=== PATIENT | male | born 1950 | race American Indian/Alaskan Native ===

== ENCOUNTER 2021-06-26 09:16 | Inpatient (IN) | payer SELFPAY ==
[2021-06-26] MEDS ORDERED: LACTATED RINGERS 1,000 ML IV ONE ×2 (10:07→11:08)
--- NOTE | 2021-06-26 10:09 | Emergency Department Report ---
ED General Adult HPI - General Chief complaint: Weakness Stated complaint: I feel shaky and weak PUI?: No Time Seen by Provider: 06/26/21 09:57 Source: patient, RN notes reviewed Mode of arrival: Ambulatory Limitations: Physical Limitation - History of Present Illness Initial comments: The patient was evaluated in the emergency department for symptoms described in the history of present illness. He/she was evaluated in the context of the global COVID-19 pandemic, which necessitated consideration that the patient might be at risk for infection with the virus that causes COVID-19. Institutional protocols and algorithms that pertain to the evaluation of patients at risk for COVID-19 are in a state of rapid change based on information released by regulatory bodies including the CDC and federal and state organizations. These policies and algorithms were followed during the patient's care in the emergency department. Please note that these policies, procedures and recommendations changed on a rapid basis. Limitation: The patient is a poor historian. The patient is a 71-year-old gentleman. He is not known to myself previously. He tells me he was admitted to [facility] last month for about 10 days secondary to COVID-19. He presents to the ER today with a complaint of 5 to 6 days feeling shaky, weak, having an unsteady gait, change in speech, and chills. He denies physical pain. He denies loss of taste and smell. He states he was given a few prescriptions, and believes that he got the prescriptions at [facility]. However, he does not know what prescriptions he takes. He denies dysuria. He has loss of taste and smell which is subacute and present for over a month. He denies bright red blood per rectum and hematemesis. -: days(s) Consistency: constant Improves with: rest Worsens with: movement - Related Data Allergies Allergy/AdvReac Type Severity Reaction Status Date / Time No Known Allergies Allergy Unverified 06/26/21 09:26 ED Review of Systems ROS: Stated complaint: FOOT Other details as noted in HPI Constitutional: chills, malaise, weakness. denies: fever Eyes: denies: eye discharge ENT: denies: epistaxis Respiratory: denies: cough Cardiovascular: denies: chest pain Genitourinary: denies: hematuria, discharge, testicular pain Neurological: weakness, abnormal gait Hematological/Lymphatic: denies: easy bleeding ED Past Medical Hx - Past Medical History Previous Medical History?: No - Surgical History Past Surgical History?: No - Social History Smoking Status: Never Smoker Substance Use Type: None ED Physical Exam - General Limitations: Physical Limitation General appearance: alert, in no apparent distress - Head Head exam: Present: atraumatic, normocephalic - Eye Eye exam: Present: normal appearance, PERRL, EOMI, other (Visual acuity intact t o finger counting, color perception, reading at a close distance). Absent: nystagmus - ENT ENT exam: Present: normal exam, normal orophraynx, mucous membranes moist, normal external ear exam - Neck Neck exam: Present: normal inspection, full ROM. Absent: tenderness, meningismus - Respiratory Respiratory exam: Present: normal lung sounds bilaterally. Absent: respiratory distress, wheezes, rales, rhonchi, stridor, decreased breath sounds - Cardiovascular Cardiovascular Exam: Present: regular rate, normal rhythm, normal heart sounds. Absent: bradycardia, tachycardia, irregular rhythm, systolic murmur, diastolic murmur, rubs, gallop - GI/Abdominal GI/Abdominal exam: Present: soft. Absent: distended, tenderness, guarding, rebound, rigid, pulsatile mass - Rectal Rectal exam: Present: deferred - Extremities Exam Extremities exam: Present: normal inspection, full ROM, other (2+ pulses noted in the bilateral upper and lower extremities. There is no palpable cord. negative Homans sign. Muscular compartments are soft. The pelvis is stable.). Absent: pedal edema, calf tenderness - Back Exam Back exam: Present: normal inspection, full ROM. Absent: tenderness, CVA tenderness (R), CVA tenderness (L), paraspinal tenderness, vertebral tenderness - Neurological Exam Neurological exam: Present: alert, oriented X3, abnormal gait (The patient has a broad-based gait. He has a positive Romberg examination. He cannot walk tandem gait), other (There is no facial droop. Tongue midline. EOMI. 5 out of 5 strength in 4 extremities. Sensation is intact to light touch in 4 extremities) - Psychiatric Psychiatric exam: Present: normal affect, normal mood - Skin Skin exam: Present: warm, dry, intact, normal color. Absent: rash ED Course Vital Signs 06/26/21 06/26/21 06/26/21 09:29 09:53 10:47 Temperature 97.7 F Pulse Rate 98 H 82 Respiratory 18 16 Rate Blood Pressure 114/72 Blood Pressure 116/73 [Left] O2 Sat by Pulse 93 95 94 Oximetry - Reevaluation(s) Reevaluation #1: 06/26/21 10:25 Differential diagnosis, including but not limited to: Pneumonia, hyperglycemia, diabetic ketoacidosis, hyperosmolar state, subacute stroke, pulmonary embolism, Covid long-haul Assessment and plan: 71-year-old gentleman, who is afebrile with reassuring vital signs, with the exception of hypoxia, saturating 89 to 94% on room air, clinically sober with a GCS of 15, with 5 to 6 days of weakness, unsteady gait, change in speech pattern. The patient is not a TPA candidate and does not require emergent CT angiogram head and neck given duration of symptoms. His symptoms are present for greater than 24 hours. Given recent admission of Covid, hospitalization, hypoxia, we will obtain CT scan of the chest, and CT scan of the brain. We will obtain appropriate laboratory studies, urinalysis, EKG. Have requested medical records from [facility]. The patient states he does not have chronic medical issues, but I suspect that he is a poorly and chronically manages diabetic. He will likely require admission once initial diagnostics have resulted. I have discussed this plan of care with the patient. He is agreeable to the plan of care. 06/26/21 11:09 Laboratory studies demonstrate hyperglycemia, venous pH of 7.2, hyperkalemia, with potassium greater than 6 that is not hemolyzed (likely secondary to dehydration and transcellular shift, suspect that total body potassium still depleted), and renal insufficiency. IV fluids ordered, insulin push, insulin drip ordered. CT scan of the chest will be canceled as patient has renal insufficiency, nuclear medicine study will be obtained. CT scan of the brain is pending. This patient meets criteria for admission and hospitalization secondary to renal insufficiency, dehydration, hyperglycemia, diabetic ketoacidosis. Defer to inpatient team to follow-up on nuclear medicine study. Page has been placed to critical care physician on-call to coordinate placement into the intensive care unit. We are still awaiting medical records from [place]. 06/26/21 11:40 Dr. Moore to admit patient to the medical service. Dr. Cowart of critical care will follow in consultation. Laboratory studies reviewed and appreciated. Nuclear medicine study is pending. Patient remains awake, alert, oriented and in no significant distress at this time. 06/26/21 15:01 Nuclear medicine study is low probability for pulmonary embolism. - Consultations Consultation #1: 06/26/21 11:12 Discussed history, physical, laboratory studies, pending imaging studies and overall plan of care with critical care physician, Dr. Cowart, who is agreeable to placing this patient into the intensive care unit. ED Medical Decision Making - Lab Data Result diagrams: 06/26/21 10:14 06/26/21 13:22 Vital Signs 06/26/21 06/26/21 09:29 09:53 Temperature 97.7 F Pulse Rate 98 H Respiratory 18 Rate Blood Pressure 114/72 O2 Sat by Pulse 93 95 Oximetry Lab Results 06/26/21 Range/Units 09:31 POC Glucose 531 H (70-105) mg/dL Lab Results 06/26/21 06/26/21 06/26/21 Range/Units 09:31 10:14 10:14 WBC 5.6 (4.5-11.0) K/mm3 RBC 5.27 H (3.65-5.03) M/mm3 Hgb 15.5 H (11.8-15.2) gm/dl Hct 49.1 H (35.5-45.6) % MCV 93 (84-94) fl MCH 29 (28-32) pg MCHC 32 (32-34) % RDW 14.7 (13.2-15.2) % Plt Count 195 (140-440) K/mm3 Lymph % (Auto) 20.4 (13.4-35.0) % [place] % (Auto) 8.4 H (0.0-7.3) % Eos % (Auto) 0.2 (0.0-4.3) % Baso % (Auto) 0.6 (0.0-1.8) % Lymph # (Auto) 1.1 L (1.2-5.4) K/mm3 [place] # (Auto) 0.5 (0.0-0.8) K/mm3 Eos # (Auto) 0.0 (0.0-0.4) K/mm3 Baso # (Auto) 0.0 (0.0-0.1) K/mm3 Seg Neutrophils % 70.4 H (40.0-70.0) % Seg Neutrophils # 3.9 (1.8-7.7) K/mm3 PT 13.8 (12.2-14.9) Sec. INR 1.01 (0.87-1.13) APTT 25.3 (24.2-36.6) Sec. Thrombin Time 18.6 (15.1-19.6) Sec. D-Dimer 353.02 H (0-234) ng/mlDDU VBG pH (7.320-7.420) Sodium (137-145) mmol/L Chloride (98-107) mmol/L Carbon Dioxide (22-30) mmol/L Anion Gap mmol/L BUN (9-20) mg/dL Creatinine (0.8-1.3) mg/dL Estimated GFR ml/min BUN/Creatinine Ratio % POC Glucose 531 H (70-105) mg/dL Calcium (8.4-10.2) mg/dL Magnesium (1.7-2.3) mg/dL Total Bilirubin (0.1-1.2) mg/dL AST (5-40) units/L ALT (7-56) units/L Alkaline Phosphatase (35-129) units/L Total Creatine Kinase (55-170) units/L CK-MB (CK-2) (0.0-4.0) ng/mL CK-MB (CK-2) Rel Index (0-4) Troponin T (0.00-0.029) ng/mL Total Protein (6.3-8.2) g/dL Albumin (3.9-5) g/dL Albumin/Globulin Ratio % 06/26/21 06/26/21 06/26/21 Range/Units 10:14 10:14 10:14 WBC (4.5-11.0) K/mm3 RBC (3.65-5.03) M/mm3 Hgb (11.8-15.2) gm/dl Hct (35.5-45.6) % MCV (84-94) fl MCH (28-32) pg MCHC (32-34) % RDW (13.2-15.2) % Plt Count (140-440) K/mm3 Lymph % (Auto) (13.4-35.0) % [place] % (Auto) (0.0-7.3) % Eos % (Auto) (0.0-4.3) % Baso % (Auto) (0.0-1.8) % Lymph # (Auto) (1.2-5.4) K/mm3 Cabell # (Auto) (0.0-0.8) K/mm3 Eos # (Auto) (0.0-0.4) K/mm3 Baso # (Auto) (0.0-0.1) K/mm3 Seg Neutrophils % (40.0-70.0) % Seg Neutrophils # (1.8-7.7) K/mm3 PT (12.2-14.9) Sec. INR (0.87-1.13) APTT (24.2-36.6) Sec. Thrombin Time (15.1-19.6) Sec. D-Dimer (0-234) ng/mlDDU VBG pH 7.211 L (7.320-7.420) Sodium 139 (137-145) mmol/L Chloride 97.1 L (98-107) mmol/L Carbon Dioxide 20 L (22-30) mmol/L Anion Gap 28 mmol/L BUN 38 H (9-20) mg/dL Creatinine 2.0 H (0.8-1.3) mg/dL Estimated GFR 33 ml/min BUN/Creatinine Ratio 19 % POC Glucose (70-105) mg/dL Calcium 10.2 (8.4-10.2) mg/dL Magnesium 2.80 H (1.7-2.3) mg/dL Total Bilirubin 0.30 (0.1-1.2) mg/dL AST 12 (5-40) units/L ALT 23 (7-56) units/L Alkaline Phosphatase 65 (35-129) units/L Total Creatine Kinase 41 L 41 L (55-170) units/L CK-MB (CK-2) 1.7 (0.0-4.0) ng/mL CK-MB (CK-2) Rel Index 4.1 H (0-4) Troponin T < 0.010 (0.00-0.029) ng/mL Total Protein 6.9 (6.3-8.2) g/dL Albumin 3.6 L (3.9-5) g/dL Albumin/Globulin Ratio 1.1 % Lab Results 06/26/21 06/26/21 06/26/21 Range/Units 09:31 10:14 10:14 WBC 5.6 (4.5-11.0) K/mm3 RBC 5.27 H (3.65-5.03) M/mm3 Hgb 15.5 H (11.8-15.2) gm/dl Hct 49.1 H (35.5-45.6) % MCV 93 (84-94) fl MCH 29 (28-32) pg MCHC 32 (32-34) % RDW 14.7 (13.2-15.2) % Plt Count 195 (140-440) K/mm3 Lymph % (Auto) 20.4 (13.4-35.0) % [place]ell % (Auto) 8.4 H (0.0-7.3) % Eos % (Auto) 0.2 (0.0-4.3) % Baso % (Auto) 0.6 (0.0-1.8) % Lymph # (Auto) 1.1 L (1.2-5.4) K/mm3 Cabell # (Auto) 0.5 (0.0-0.8) K/mm3 Eos # (Auto) 0.0 (0.0-0.4) K/mm3 Baso # (Auto) 0.0 (0.0-0.1) K/mm3 Seg Neutrophils % 70.4 H (40.0-70.0) % Seg Neutrophils # 3.9 (1.8-7.7) K/mm3 PT 13.8 (12.2-14.9) Sec. INR 1.01 (0.87-1.13) APTT 25.3 (24.2-36.6) Sec. Thrombin Time 18.6 (15.1-19.6) Sec. D-Dimer 353.02 H (0-234) ng/mlDDU VBG pH (7.320-7.420) Sodium (137-145) mmol/L Chloride (98-107) mmol/L Carbon Dioxide (22-30) mmol/L Anion Gap mmol/L BUN (9-20) mg/dL Creatinine (0.8-1.3) mg/dL Estimated GFR ml/min BUN/Creatinine Ratio % POC Glucose 531 H (70-105) mg/dL Calcium (8.4-10.2) mg/dL Magnesium (1.7-2.3) mg/dL Total Bilirubin (0.1-1.2) mg/dL AST (5-40) units/L ALT (7-56) units/L Alkaline Phosphatase (35-129) units/L Total Creatine Kinase (55-170) units/L CK-MB (CK-2) (0.0-4.0) ng/mL CK-MB (CK-2) Rel Index (0-4) Troponin T (0.00-0.029) ng/mL Total Protein (6.3-8.2) g/dL Albumin (3.9-5) g/dL Albumin/Globulin Ratio % 06/26/21 06/26/21 06/26/21 Range/Units 10:14 10:14 10:14 WBC (4.5-11.0) K/mm3 RBC (3.65-5.03) M/mm3 Hgb (11.8-15.2) gm/dl Hct (35.5-45.6) % MCV (84-94) fl MCH (28-32) pg MCHC (32-34) % RDW (13.2-15.2) % Plt Count (140-440) K/mm3 Lymph % (Auto) (13.4-35.0) % Cabell % (Auto) (0.0-7.3) % Eos % (Auto) (0.0-4.3) % Baso % (Auto) (0.0-1.8) % Lymph # (Auto) (1.2-5.4) K/mm3 [place]ell # (Auto) (0.0-0.8) K/mm3 Eos # (Auto) (0.0-0.4) K/mm3 Baso # (Auto) (0.0-0.1) K/mm3 Seg Neutrophils % (40.0-70.0) % Seg Neutrophils # (1.8-7.7) K/mm3 PT (12.2-14.9) Sec. INR (0.87-1.13) APTT (24.2-36.6) Sec. Thrombin Time (15.1-19.6) Sec. D-Dimer (0-234) ng/mlDDU VBG pH 7.211 L (7.320-7.420) Sodium 139 (137-145) mmol/L Chloride 97.1 L (98-107) mmol/L Carbon Dioxide 20 L (22-30) mmol/L Anion Gap 28 mmol/L BUN 38 H (9-20) mg/dL Creatinine 2.0 H (0.8-1.3) mg/dL Estimated GFR 33 ml/min BUN/Creatinine Ratio 19 % POC Glucose (70-105) mg/dL Calcium 10.2 (8.4-10.2) mg/dL Magnesium 2.80 H (1.7-2.3) mg/dL Total Bilirubin 0.30 (0.1-1.2) mg/dL AST 12 (5-40) units/L ALT 23 (7-56) units/L Alkaline Phosphatase 65 (35-129) units/L Total Creatine Kinase 41 L 41 L (55-170) units/L CK-MB (CK-2) 1.7 (0.0-4.0) ng/mL CK-MB (CK-2) Rel Index 4.1 H (0-4) Troponin T < 0.010 (0.00-0.029) ng/mL Total Protein 6.9 (6.3-8.2) g/dL Albumin 3.6 L (3.9-5) g/dL Albumin/Globulin Ratio 1.1 % - EKG Data -: EKG Interpreted by La EKG shows normal: sinus rhythm - EKG Data When compared to previous EKG there are: previous EKG unavailable 06/26/21 10:24 EKG is interpreted at 10: 16 Sinus rhythm, 86 bpm, left axis deviation, left anterior fascicular block, QTC 469 ms, borderline left ventricular hypertrophy, and motion artifact. This is an abnormal EKG. This EKG is not a STEMI. - Radiology Data Radiology results: pending, report reviewed, image reviewed [facility] [address] [place] [address] Cat Scan Report Signed Patient: CLIFF CRANE MR#: [id number] 1 : 1950 Acct:[id number] Age/Sex: 71 / M ADM Date: 06/26/21 Loc: ED Attending Dr: Ordering Physician: LLUVIA PARTIDA MD Date of Service: 06/26/21 Procedure(s): CT head/brain wo con Accession Number(s): [id number] cc: LLUVIA PARTIDA MD CT HEAD WITHOUT CONTRAST INDICATION : Dizziness, unsteady gait, hyperglycemia. TECHNIQUE: Axial, coronal and sagittal CT imaging was performed from the skull apex through the skull base without contrast. All CT scans at this location are performed using CT dose reduction fo r ALARA by means of automated exposure control. COMPARISON: None available. FINDINGS: PARENCHYMA: No mass, midline shift, hemorrhage, extraaxial collection or acute territorial infarction. Probable chronic microvascular ischemic changes are seen along the periventr icular white matter. There is mild generalized atrophy. VENTRICLES: Symmetric and normal in size. SOFT TISSUES: No significant abnormality of the included soft tissues/orbits. BONES: No acute osseous abnormality. SINUSES: No significant abnormality. ADDITIONAL FINDINGS: None. IMPRESSION: 1. No acute intracranial abnormality. 2. Additional findings as above. Signer Name: Mati Angeles MD Signed: 06/26/2021 11:49 AM Workstation Name: [id number] Transcribed By: MN Dictated By: Mati Angeles MD Electronically Authenticated By: aMti Angeles MD Signed Date/Time: 06/26/21 1149 DD/ 1148 [facility] [address] [place] [address] XRay Report Signed Patient: CLIFF CRANE MR#: [id number] 1 : 1950 Acct :[id number] Age/Sex: 71 / M ADM Date: 06/26/21 Loc: ED Attending Dr: Ordering Physician: LLUVIA PARTIDA MD Date of Service: 06/26/21 Procedure(s): XR chest 1V ap Accession Number(s): [id number] cc: LLUVIA PARTIDA MD Fluoro Time In Minutes: CHEST 1 VIEW 06/26/2021 9:32 AM INDICATION / CLINICAL INFORMATION: hypoxia and dizzy. COMPARISON: None available. FINDINGS: SUPPORT DEVICES: None. HEART / MEDIASTINUM: No significant abnormality. LUNGS / PLEURA: No significant pulmonary or pleural abnormality. No pneumothorax. ADDITIONAL FINDINGS: No significant additional findings. IMPRESSION: 1. No acute findings. Signer Name: Jagjit Cruz MD Signed: 06/26/2021 10:34 AM Workstation Name: [id number] Transcribed By: DB Dictated By: JAGJIT CRUZ MD Electronically Authenticated By: JAGJIT CRUZ MD Signed Date/Time: 06/26/21 1034 DD/ 1033 Critical Care Time: Yes Critical care time in (mins) excluding proc time.: 35 Critical care attestation.: If time is entered above; I have spent that time in minutes in the direct care of this critically ill patient, excluding procedure time. ED Disposition Clinical Impression: Hypoxia, Unsteady gait, Hyperglycemia, DKA (diabetic ketoacidosis), Renal insufficiency, Dehydration Disposition: ADMITTED INPATIENT Is pt being admited?: Yes Condition: Serious
[2021-06-26 10:38] LABS: Basophils % (Auto) 0.6 % (0.0-1.8); Eosinophils % (Auto) 0.2 % (0.0-4.3); Hematocrit 49.1 % (35.5-45.6); Hemoglobin 15.5 gm/dl (11.8-15.2); Lymphocytes # (Auto) 1.1 K/mm3 (1.2-5.4); Lymphocytes % (Auto) 20.4 % (13.4-35.0); Mean Corpuscular HGB Conc 32 % (32-34); Mean Corpuscular Volume 93 fl (84-94); Monocytes # (Auto) 0.5 K/mm3 (0.0-0.8); Monocytes % (Auto) 8.4 % (0.0-7.3); Platelet Count 195 K/mm3 (140-440); Red Blood Count 5.27 M/mm3 (3.65-5.03); Red Cell Distribution Width 14.7 % (13.2-15.2)
--- NOTE | 2021-06-26 10:38 | XRay Report ---
CHEST 1 VIEW 06/26/2021 9:32 AM INDICATION / CLINICAL INFORMATION: hypoxia and dizzy. COMPARISON: None available. FINDINGS: SUPPORT DEVICES: None. HEART / MEDIASTINUM: No significant abnormality. LUNGS / PLEURA: No significant pulmonary or pleural abnormality. No pneumothorax. ADDITIONAL FINDINGS: No significant additional findings. IMPRESSION: 1. No acute findings. Signer Name: Jagjit Cruz MD Signed: 06/26/2021 10:34 AM Workstation Name: [id number]
[2021-06-26 10:58] LABS: INR 1.01 (0.87-1.13); Partial Thromboplastin Time 25.3 Sec. (24.2-36.6)
[2021-06-26 10:59] LABS: Thrombin Time 18.6 Sec. (15.1-19.6)
[2021-06-26 11:00] LABS: Creatine Kinase MB 1.7 ng/mL (0.0-4.0)
[2021-06-26 11:01] LABS: Albumin 3.6 g/dL (3.9-5); Calcium 10.2 mg/dL (8.4-10.2)
[2021-06-26] MEDS ORDERED: DEXTROSE 50% IN WATER (25GM) 50 ML SYRINGE IV PRN ×2 (11:08→22:13)
[2021-06-26] MEDS ORDERED: INSULIN REGULAR, HUMAN 100 UNITS/1 ML IV ONE (11:08)
--- NOTE | 2021-06-26 11:40 | History and Physical Report ---
History of Present Illness Chief complaint: I feel weak and tired History of present illness: 71 YO Female with DM, Medication Noncompliance presents to ED for evaluation. Patient reports "I feel weak and tired". Patient states that he has experienced generalized weakness, frequent urination, polydipsia. EMS was notified and upon arrival the patient was found to be in distress and subsequently transported to [facility] for further care and evaluation of the aforementioned symptoms. The patient was seen and evaluated in the emergency department. All lab and imaging studies reviewed. The patient was found to have diabetic ketoacidosis with concomitant volume depletion complicated by KYLE with ATN. The patient was admitted to ICU and initiated on DKA protocol. Patient denies fever, chills, chest pain, palpitation, productive cough, skin rash, recent ill contacts, or known exposure to COVID-19. No prior admission for review. No medication listed at time of admission for reconciliation. Advanced care planning conducted in ED. Past History Past Medical History: diabetes, other (See HPI) Past Surgical History: No surgical history, Other (Reviewed) Social history: , lives with family Family history: diabetes, hypertension Medications and Allergies Allergies Allergy/AdvReac Type Severity Reaction Status Date / Time No Known Allergies Allergy Unverified 06/26/21 09:26 Active Meds: Active Medications Dextrose (Dextrose 50% In Water (25gm) 50 Ml Syringe) 0 ml IV Q30MIN PRN; Protocol PRN Reason: Hypoglycemia Insulin Human Regular 100 (units/ Sodium Chloride) 100 mls @ 1 mls/hr IV TITR LUIS; Protocol Potassium Chloride/Dextrose/Sod Cl (D5w/0.45% Nacl/Kcl 20 Meq) 20 meq in 1,000 mls @ 125 mls/hr IV DIRECT LUIS Lactated Ringer's (Lactated Ringers) 1,000 mls @ 999 mls/hr IV BOLUS ONE Stop: 06/26/21 12:08 Last Admin: 06/26/21 11:31 Dose: 999 mls/hr Documented by: Sodium Chloride (Sodium Chloride 0.9% 10 Ml Flush Syringe) 10 ml IV PRN LUIS Review of Systems Constitutional: weakness, no fever, no chills Ears, nose, mouth and throat: no ear pain, no ear discharge, no decreased hearing, no nose pain, no nasal congestion, no sinus pressure Cardiovascular: no chest pain, no orthopnea, no palpitations, no edema, no lightheadedness Respiratory: no cough, no excessive sputum, no hemoptysis, no dyspnea on exertion Gastrointestinal: no nausea, no vomiting, no diarrhea Genitourinary Male: no hematuria, no flank pain, no discharge, no urinary frequency Rectal: no pain, no incontinence, no bleeding Musculoskeletal: no neck stiffness, no shooting arm pain, no arm numbness/t ingling, no low back pain, no shooting leg pain Integumentary: no rash, no redness, no sores, no jaundice Neurological: no transient paralysis, no paralysis, no parathesias, no tingling Psychiatric: no memory loss, no change in sleep habits, no insomnia, no change in libido, no suicidal ideation Endocrine: polyphagia, polydipsia, polyuria, nocturia Hematologic/Lymphatic: no easy bruising, no easy bleeding Allergic/Immunologic: no allergic rhinitis, no wheezing Exam - Constitutional Vitals: Temp Pulse Resp BP Pulse Ox 97.7 F 82 16 116/73 94 06/26/21 09:29 06/26/21 10:47 06/26/21 10:47 06/26/21 10:47 06/26/21 10:47 General appearance: Present: mild distress, cachectic - EENT Eyes: Present: PERRL ENT: hearing intact, clear oral mucosa, other (Oral mucosa dry) - Neck Neck: Present: supple, normal ROM - Respiratory Respiratory effort: normal Respiratory: bilateral: CTA - Cardiovascular Heart Sounds: Present: S1 & S2. Absent: rub, click - Extremities Extremities: pulses symmetrical, No edema Peripheral Pulses: within normal limits - Abdominal General gastrointestinal: Present: soft, non-tender, non-distended, normal bowel sounds Male genitourinary: Present: normal - Integumentary Integumentary: Present: clear, warm, dry - Musculoskeletal Musculoskeletal: generalized weakness - Psychiatric Psychiatric: appropriate mood/affect, intact judgment & insight - Neurologic Neurologic: CNII-XII intact, moves all extremities HEART Score - HEART Score Troponin: Troponin T < 0.010 ng/mL (0.00-0.029) 06/26/21 10:14 Results - Labs CBC & Chem 7: 06/26/21 10:14 06/26/21 13:22 Labs: Abnormal lab results 06/26/21 06/26/21 06/26/21 Range/Units 09:31 10:14 10:14 RBC 5.27 H (3.65-5.03) M/mm3 Hgb 15.5 H (11.8-15.2) gm/dl Hct 49.1 H (35.5-45.6) % [place] % (Auto) 8.4 H (0.0-7.3) % Lymph # (Auto) 1.1 L (1.2-5.4) K/mm3 Seg Neutrophils % 70.4 H (40.0-70.0) % D-Dimer 353.02 H (0-234) ng/mlDDU VBG pH (7.320-7.420) Potassium (3.6-5.0) mmol/L Chloride (98-107) mmol/L Carbon Dioxide (22-30) mmol/L BUN (9-20) mg/dL Creatinine (0.8-1.3) mg/dL Glucose (75-100) mg/dL POC Glucose 531 H (70-105) mg/dL Magnesium (1.7-2.3) mg/dL Total Creatine Kinase (55-170) units/L CK-MB (CK-2) Rel Index (0-4) Albumin (3.9-5) g/dL 06/26/21 06/26/21 06/26/21 Range/Units 10:14 10:14 10:14 RBC (3.65-5.03) M/mm3 Hgb (11.8-15.2) gm/dl Hct (35.5-45.6) % [place] % (Auto) (0.0-7.3) % Lymph # (Auto) (1.2-5.4) K/mm3 Seg Neutrophils % (40.0-70.0) % D-Dimer (0-234) ng/mlDDU VBG pH 7.211 L (7.320-7.420) Potassium 6.4 H* (3.6-5.0) mmol/L Chloride 97.1 L (98-107) mmol/L Carbon Dioxide 20 L (22-30) mmol/L BUN 38 H (9-20) mg/dL Creatinine 2.0 H (0.8-1.3) mg/dL Glucose 662 H* (75-100) mg/dL POC Glucose (70-105) mg/dL Magnesium 2.80 H (1.7-2.3) mg/dL Total Creatine Kinase 41 L 41 L (55-170) units/L CK-MB (CK-2) Rel Index 4.1 H (0-4) Albumin 3.6 L (3.9-5) g/dL Assessment and Plan - Patient Problems (1) DKA (diabetic ketoacidosis) Current Visit: No Status: Acute Plan to address problem: DKA protocol: Insulin drip, IV fluid resuscitation therapy, serial BMP, monitor anion gap, monitor fluid balance, potassium repletion as per protocol. The high probability of a clinically significant, sudden or life threatening deterioration of the [neuro, renal, or endocrine] system(s) required my full and direct attention, intervention and personal management. The aggregate critical care time was [65] minutes. This time is in addition to time spent performing reported procedures but includes the following: [x] Data Review and interpretation [x] Patient assessment and monitoring of vital signs [x] Documentation [x] Medication orders and management (2) Volume depletion Current Visit: Yes Status: Acute Plan to address problem: IV fluid resuscitation therapy, (3) Acute kidney injury (KYLE) with acute tubular necrosis (ATN) Current Visit: Yes Status: Acute Plan to address problem: BMP, IV fluid resuscitation therapy, repeat BMP in a.m., monitor fluid balance, repeat BMP in a.m. to monitor GFR as well as serum creatinine. (4) DVT prophylaxis Current Visit: Yes Status: Acute Plan to address problem: SCD to bilateral lower extremities while in bed (5) Advance care planning Current Visit: Yes Status: Acute Plan to address problem: Disease education conducted, care plan discussed, diagnoses discussed, prognosis discussed, patient knowledges understanding and agreement with care plan, patient is full code, +30 minutes.
[2021-06-26] MEDS ORDERED: HYDROmorphone 1 MG/1 ML INJ IV PRN (11:41)
[2021-06-26] MEDS ORDERED: ALBUTEROL 2.5 MG/3 ML NEBU IH PRN (11:41)
[2021-06-26] MEDS ORDERED: oxyCODONE /ACETAMINOPHEN 5-325MG TAB PO PRN (11:41)
[2021-06-26] MEDS ORDERED: ACETAMINOPHEN 325 MG TAB PO PRN (11:41)
--- NOTE | 2021-06-26 11:53 | Cat Scan Report ---
CT HEAD WITHOUT CONTRAST INDICATION : Dizziness, unsteady gait, hyperglycemia. TECHNIQUE: Axial, coronal and sagittal CT imaging was performed from the skull apex through the skul l base without contrast. All CT scans at this location are performed using CT dose reduction for ALA RA by means of automated exposure control. COMPARISON: None available. FINDINGS: PARENCHYMA: No mass, midline shift, hemorrhage, extraaxial collection or acute territorial infarctio n. Probable chronic microvascular ischemic changes are seen along the periventricular white matter. There is mild generalized atrophy. VENTRICLES: Symmetric and normal in size. SOFT TISSUES: No significant abnormality of the included soft tissues/orbits. BONES: No acute osseous abnormality. SINUSES: No significant abnormality. ADDITIONAL FINDINGS: None. IMPRESSION: 1. No acute intracranial abnormality. 2. Additional findings as above. Signer Name: Mati Angeles MD Signed: 06/26/2021 11:49 AM Workstation Name: [id number]
[2021-06-26] MEDS ORDERED: INSULIN REGULAR, HUMAN 100 UNITS in SODIUM CHLORIDE 0.9% 99 ML IV SCH (12:00)
[2021-06-26] MEDS ORDERED: D5W/0.45% NACL/KCL 20 MEQ 20 MEQ/1,000 ML BAG IV SCH (12:00)
--- NOTE | 2021-06-26 13:17 | Nuclear Medicine Report ---
NUCLEAR MEDICINE PERFUSION LUNG SCAN INDICATION / CLINICAL INFORMATION: Hypoxia, elevated d-dimer. TECHNIQUE: 5.1 mCi of Tc-99m MAA were given by IV. COMPARISON: Chest radiograph dated today. FINDINGS: PERFUSION: Symmetrically decreased perfusion along the upper lobes correlates with the emphysematous changes seen on the chest radiograph. No suspicious perfusion defects are otherwise seen. ADDITIONAL FINDINGS: None. IMPRESSION: 1. Low probability for pulmonary embolism. Signer Name: Mati Angeles MD Signed: 06/26/2021 1:13 PM Workstation Name: [id number]
--- NOTE | 2021-06-26 13:57 | Electrocardiograph Report ---
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
[2021-06-26 14:17] LABS: Calcium 9.7 mg/dL (8.4-10.2)
[2021-06-26 16:50] LABS: BUN/Creatinine Ratio 26; Blood Urea Nitrogen 37 mg/dL (9-20); Calcium 10.1 mg/dL (8.4-10.2); Hemolysis Index 6
[2021-06-26 17:47] LABS: BUN/Creatinine Ratio 29; Blood Urea Nitrogen 35 mg/dL (9-20); Hemolysis Index 99
[2021-06-26 21:28] LABS: BUN/Creatinine Ratio 32; Blood Urea Nitrogen 32 mg/dL (9-20); Calcium 9.6 mg/dL (8.4-10.2); Hemolysis Index 66
[2021-06-27] MEDS: INSULIN LISPRO 100 UNIT/ML SUB-Q SCH ×2 (00:04→05:46)
[2021-06-27 06:17] LABS: BUN/Creatinine Ratio 26; Blood Urea Nitrogen 26 mg/dL (9-20); Calcium 8.9 mg/dL (8.4-10.2); Hemolysis Index 10
[2021-06-27] MEDS ORDERED: INSULIN GLARGINE 100 UNITS/ML SUB-Q SCH (10:00)
[2021-06-27 13:28] VITALS: BP 115/75
--- NOTE | 2021-06-27 13:39 | Discharge Summary ---
Providers - Providers Date of Admission: 06/26/21 11:41 Attending physician: TAMMY MONROY MD 06/26/21 22:13 Consult to Dietitian/Nutrition [CONS] Routine Physician Instructions: Reason For Exam: Reason for Consult: Diet education Primary care physician: [employer] [employer] Hospitalization Reason for admission: Diabetic Ketoacidosis Condition: Serious Hospital course: History of present illness: 71 YO Female with DM, Medication Noncompliance presents to ED for evaluation. Patient reports "I feel weak and tired". Patient states that he has experienced generalized weakness, frequent urination, polydipsia. EMS was notified and upon arrival the patient was found to be in distress and subsequently transport ed to [facility] for further care and evaluation of the aforementioned symptoms. The patient was seen and evaluated in the emergency department. All lab and imaging studies reviewed. The patient was found to have diabetic ketoacidosis with concomitant volume depletion complicated by KYLE with ATN. The patient was admitted to ICU and initiated on DKA protocol. Patient denies fever, chills, chest pain, palpitation, productive cough, skin rash, recent ill contacts, or known exposure to COVID-19. No prior admission for review. No medication listed at time of admission for reconciliation. Advanced care planning conducted in ED. (1) DKA (diabetic ketoacidosis) Current Visit: No Status: Acute Plan to address problem: DKA protocol: Insulin drip, IV fluid resuscitation therapy, serial BMP, monitor anion gap, monitor fluid balance, potassium repletion as per protocol. (2) Volume depletion Current Visit: Yes Status: Acute Plan to address problem: IV fluid resuscitation therapy, (3) Acute kidney injury (KYLE) with acute tubular necrosis (ATN) Current Visit: Yes Status: Acute Plan to address problem: BMP, IV fluid resuscitation therapy, repeat BMP in a.m., monitor fluid balance, repeat BMP in a.m. to monitor GFR as well as serum creatinine. (4) DVT prophylaxis Current Visit: Yes Status: Acute Plan to address problem: SCD to bilateral lower extremities while in bed (5) Advance care planning Current Visit: Yes Status: Acute Plan to address problem: Disease education conducted, care plan discussed, diagnoses discussed, prognosis discussed, patient knowledges understanding and agreement with care plan, patient is full code, +30 minutes. The high probability of a clinically significant, sudden or life threatening deterioration of the [neuro, renal, or endocrine] system(s) required my full and direct attention, intervention and personal management. The aggregate critical care time was [35] minutes. This time is in addition to time spent performing reported procedures but includes the following: [x] Data Review and interpretation [x] Patient assessment and monitoring of vital signs [x] Documentation [x] Medication orders and management Hospital course to date: Patient was admitted for diabetic ketoacidosis due to newly diagnosed type 2 diabetes. Patient was admitted with blood sugar of 662. Blood sugar and anion gap normalized upon the initiation of insulin IV. IV insulin has since been discontinued and patient was started on subcutaneous injections. He had no complaints on encounter and was agreeable to plan of going home. Will discharge patient home on NPH 70/30 insulin 5 units twice daily and metformin 500 mg p.o. twice daily. Patient was also advised to avoid any nephrotoxic agents such as NSAIDs due to his acute kidney injury. Acute kidney injury was believed to be due to dehydration. He was advised to follow-up with an outpatient primary care doctor as soon as possible. Disposition: 01 HOME / SELF CARE / HOMELESS Final Discharge Diagnosis (Prints w/discharge instructions): Diabetic Ketoa cidosis Time spent for discharge: 35 - Discharge Diagnoses (1) Acute kidney injury (KYLE) with acute tubular necrosis (ATN) Status: Acute (2) DKA (diabetic ketoacidosis) Status: Acute (3) Hyperglycemia Status: Acute (4) Hypoxia Status: Acute (5) Renal insufficiency Status: Acute (6) Volume depletion Status: Acute Core Measure Documentation - Palliative Care Palliative Care/ Comfort Measures: Not Applicable - Core Measures Any of the following diagnoses?: none Exam - Physical Exam Narrative exam: General appearance: Present: NAD, thin appearing gentleman - EENT Eyes: Present: PERRL ENT: hearing intact, clear oral mucosa, other (Oral mucosa dry) - Neck Neck: Present: supple, normal ROM - Respiratory Respiratory effort: normal Respiratory: bilateral: CTA - Cardiovascular Heart Sounds: Present: S1 & S2. Absent: rub, click - Extremities Extremities: pulses symmetrical, No edema Peripheral Pulses: within normal limits - Abdominal General gastrointestinal: Present: soft, non-tender, non-distended, normal bowel sounds Male genitourinary: Present: normal - Integumentary Integumentary: Present: clear, warm, dry - Musculoskeletal Musculoskeletal: generalized weakness - Psychiatric Psychiatric: appropriate mood/affect, intact judgment & insight - Neurologic Neurologic: CNII-XII intact, moves all extremities - Constitutional Vitals: Temp Pulse Resp BP Pulse Ox 98.1 F 74 12 115/75 93 06/26/21 20:13 06/27/21 10:00 06/27/21 10:00 06/27/21 13:01 06/27/21 13:01 Plan Activity: no restrictions Weight Bearing Status: Weight Bear as Tolerated Diet: diabetic Follow up with: PRIMARY CARE, [Primary Care Provider] - 3-5 Days Prescriptions: metFORMIN [Glucophage] 500 mg PO BID 30 Days #60 tablet Insulin NPH Hum/Reg Insulin Hm [Novolin 70-30 100 Unit/ml Vial] 5 unit SQ BID 30 Days #3 vial
== END 2021-06-27 16:30 | disposition home or self-care (01) | DRG 637 ==
LOC: ED 09:16 → CC1 11:41
PROVIDERS: ADMIT Internal Medicine; ATTEND Internal Medicine
DX: E11.10 Type 2 diabetes mellitus with ketoacidosis without coma (principal); N17.0 Acute kidney failure with tubular necrosis; E86.0 Dehydration; R09.02 Hypoxemia; Z91.14 Patient's other noncompliance with medication regimen; Z79.4 Long term (current) use of insulin; E86.9 Volume depletion, unspecified
CPT/HCPCS: 36415; 70450; 71045; 78580; 80048; 80053; 82550; 82553; 82805; 82962; 83735; 84484; 85025; 85379; 85610; 85670; 85730; 93005; G0378; A9540; J1815; J7120